=== PATIENT | male | born 1960 | race Caucasian/White ===

== ENCOUNTER 2023-09-17 04:12 | Emergency (ER) | payer OTHER ==
[2023-09-17 04:22] VITALS: BP 121/82; PULSE 80; RESP 18; TEMP 97.9; BMI 30.7
== END 2023-09-17 04:42 | disposition home or self-care (01) ==
LOC: FER 04:12
DX: M54.50 Low back pain, unspecified (principal); V89.2XXA Person injured in unspecified motor-vehicle accident, traffic, initial encounter; Y92.410 Unspecified street and highway as the place of occurrence of the external cause
CPT/HCPCS: 99282-25